=== PATIENT | female | born 1990 | race Caucasian/White ===

== ENCOUNTER 2016-09-08 11:46 | Emergency (ER) | payer OTHER ==
[2017-02-21] MEDS ORDERED: COLACE 100MG C100 MG PO (07:50)
[2017-02-21] MEDS ORDERED: IBUPROFEN600 MG PO (07:51)
== END 2016-09-08 15:05 | disposition home or self-care (01) ==
LOC: ER1 11:46
DX: R51 Headache (principal); R11.0 Nausea; H53.149 Visual discomfort, unspecified; F17.200 Nicotine dependence, unspecified, uncomplicated; Z88.5 Allergy status to narcotic agent; Z88.8 Allergy status to other drugs, medicaments and biological substances; Z90.49 Acquired absence of other specified parts of digestive tract
CPT/HCPCS: 70450; 96361; 96374; 96375; 99284; J1200; J2765

== ENCOUNTER 2021-06-19 15:46 | Emergency (ER) | payer OTHER ==
[~2021-06-19 15:46] MED LIST: CEFUROXIME500 MG PO; CEPHALEXIN250 MG/5 M PO; COLACE 100MG C100 MG PO; IBUPROFEN600 MG PO; MACROBID 100 M100 MG PO; MOTRIN 100100 MG/5 M PO; NORCO 7.5-3251 EACH PO; OMNICEF 300 MG300 MG PO; TORADOL 10 MG T10 MG PO; ZOFRAN4 MG PO
== END 2021-06-19 16:10 | disposition left against medical advice (07) ==
LOC: ER1 15:46
DX: Z53.21 Procedure and treatment not carried out due to patient leaving prior to being seen by health care provider (principal)